=== PATIENT | female | born 1955 | race Two or more races ===

== ENCOUNTER 2019-07-09 17:46 | Emergency (ER) | payer SELFPAY ==
[~2019-07-09 17:46] MED LIST: ASPI-515 PO; GLIP5TAB10 PO; LISI-167 PO; METF500T27 PO; SIMV10TA18 PO; SITA50TA PO
--- NOTE | 2019-07-09 18:13 | NUR ---
NO ANSWER TO NO CALL X1 AT [phone]
--- NOTE | 2019-07-09 18:16 | NUR ---
NOTIFIED BY IRINA TERESA, PT SIGNED REQUEST FOR DC FROM [facility].
== END 2019-07-10 03:53 | disposition left against medical advice (07) ==
LOC: ED 18:46
DX: R03.0 Elevated blood-pressure reading, without diagnosis of hypertension (principal); R73.09 Other abnormal glucose; Z53.21 Procedure and treatment not carried out due to patient leaving prior to being seen by health care provider